=== PATIENT | male | born 1970 | race Caucasian/White ===

== ENCOUNTER 2018-02-07 15:25 | Emergency (ER) | payer BC ==
[~2018-02-07] VITALS: Ht 182.9 cm; Wt 90.9 kg
[2018-02-07] MEDS ORDERED: ZANAFLEX4 MG PO (17:28)
[2018-02-07] MEDS ORDERED: ULTRAM50 MG PO (17:29)
[2018-02-07 18:18] VITALS: BP 93/61
== END 2018-02-07 18:19 | disposition home or self-care (01) ==
LOC: EME 15:25
DX: M54.5 Low back pain (principal); M25.551 Pain in right hip; I10 Essential (primary) hypertension
CPT/HCPCS: 72100; 73502; 99281; 99284; J3010